=== PATIENT | female | born 1990 | race American Indian/Alaskan Native ===

== ENCOUNTER 2019-01-10 17:46 | Outpatient (CLI) | payer OTHER ==
[2019-01-10] MEDS ORDERED: LACTATED RINGERS 500 ML IV ONE (17:53)
[2019-01-10 18:11] VITALS: BP 99/55
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
== END 2019-01-10 21:50 | disposition home or self-care (01) ==
LOC: TRG 17:46
PROVIDERS: ATTEND Obstetrics & Gynecology
DX: O26.892 Other specified pregnancy related conditions, second trimester (principal); R10.2 Pelvic and perineal pain; Z3A.25 25 weeks gestation of pregnancy; V89.2XXA Person injured in unspecified motor-vehicle accident, traffic, initial encounter; Y93.89 Activity, other specified; Y92.89 Other specified places as the place of occurrence of the external cause; Y99.8 Other external cause status
CPT/HCPCS: 59025; 76815; 76819; 96360; J7120